=== PATIENT | female | born 1975 | race Caucasian/White ===

== ENCOUNTER 2021-10-09 09:18 | Outpatient (CLI) | payer MEDICAID ==
[~2021-10-09 09:18] MED LIST: ALBU8HFA PO
== END 2021-10-09 23:59 | disposition home or self-care (01) ==
LOC: RAD 09:18
PROVIDERS: ATTEND Physician Assistant
DX: J01.41 Acute recurrent pansinusitis (principal); J34.2 Deviated nasal septum; J34.89 Other specified disorders of nose and nasal sinuses; R43.0 Anosmia; J30.9 Allergic rhinitis, unspecified; Z87.09 Personal history of other diseases of the respiratory system
CPT/HCPCS: 70486